=== PATIENT | male | born 1940 | race Caucasian/White ===

== ENCOUNTER 2020-10-24 13:12 | Observation (INO) ==
[2020-10-24 15:28] LABS: ABS Lymphocytes 0.7 10^3/ul (1.0-4.8); ABS Monocytes 0.2 10^3/ul (0-0.8); ABS Neutrophils 11.5 10^3/ul (1.5-7.7); Eosinophil % 0.1 %; Hematocrit 31 % (42-52); Hemoglobin 10.1 g/dL (14.0-18.0); Lymphocyte % 5.8 %; Mean Corpuscular HGB Conc 33 g/dL (31-36); Mean Corpuscular Hemoglobin 30 pg (27-31); Mean Corpuscular Volume 91 fL (80-94); Mean Platelet Volume 7.8 fL (7.4-10.4); Nucleated Red Blood Cells % 0.1; Platelet Count 309 10^3/uL (150-450); Red Blood Count 3.43 10^6 /uL (4.18-5.48); Red Cell Distribution Width 15 % (10-15); White Blood Count 12.4 10^3/uL (3.5-10.8)
[2020-10-24 15:38] LABS: Activated Partial Thrombo Time 24.2 seconds (26.0-38.0); INR 1.28 (0.82-1.09)
[2020-10-24 15:43] LABS: Troponin I 0.04 ng/mL (<0.03)
[2020-10-24 16:03] LABS: ALT 83 U/L (7-52); AST 48 U/L (13-39); Albumin 3.3 g/dL (3.2-5.2); Albumin/Globulin Ratio 1.1 (1-3); Alkaline Phosphatase 77 U/L (34-104); Anion Gap 10 mmol/L (2-11); BUN/Creatinine Ratio 25.6 (8-20); Blood Urea Nitrogen 45 mg/dL (6-24); C Reactive Protein 25.62 mg/L (<8.01); CO2 Carbon Dioxide 27 mmol/L (22-32); Calcium 8.7 mg/dL (8.6-10.3); Chloride 100 mmol/L (101-111); EGFR African American 45.5 (>60); EGFR Non-African American 37.6 (>60); Globulin 2.9 g/dL (2-4); Glucose 115 mg/dL (70-100); Sodium 137 mmol/L (135-145); Total Protein 6.2 g/dL (6.4-8.9)
[2020-10-24] MEDS ORDERED: NS 0.9% 1000 ml BAG 1,000 ML IV ONE ×2 (16:12→17:40)
[2020-10-24] MEDS ORDERED: Iodixanol (CONTRAST) 320 MG/ML 100 ML SDV IV ONE (16:58)
[2020-10-24] MEDS ORDERED: Piperacillin/Tazobac ADVAN 3.375 GM in NS 0.9% 100 ml BAG 100 ML IVPB ONE (17:39)
[2020-10-24] MEDS ORDERED: Piperacillin/Tazobac 3.375 GM BAG ONE (18:13)
[2020-10-24] MEDS ORDERED: Piperacillin/Tazobac ADVAN 3.375 GM in NS 0.9% 100 ml BAG 100 ML IV ONE (19:07)
[2020-10-24] MEDS ORDERED: Albuterol/Ipratropium NEB.SOL (2.5/0.5 MG) 3 ML NEB.SOLN INH PRN (19:26)
[2020-10-24] MEDS ORDERED: Zosyn per Pharmacy NOTE FOLLOW UP SCH (20:00)
[2020-10-24] MEDS: ZOSYN 3.375 GM Q8H per EXTENDED INFUSION IV SCH (21:54)
[2020-10-24] MEDS: Heparin 5000 UNITS/ML 1 mL VIAL SUBCUT SCH (21:54)
[2020-10-24] MEDS: NFT: Albuterol/Ipratropium RESP(NF) MDI (Combivent Respimat) INH SCH (22:31)
[2020-10-24 22:41] LABS: Troponin I 0.04 ng/mL (<0.03)
[2020-10-25] MEDS: ZOSYN 3.375 GM Q8H per EXTENDED INFUSION IV SCH ×2 (05:40→14:11)
[2020-10-25] MEDS: Heparin 5000 UNITS/ML 1 mL VIAL SUBCUT SCH ×2 (05:40→14:08)
[2020-10-25 07:00] LABS: ABS Eosinophils 0.2 10^3/ul (0-0.6); ABS Lymphocytes 1.6 10^3/ul (1.0-4.8); ABS Monocytes 0.6 10^3/ul (0-0.8); ABS Neutrophils 10.2 10^3/ul (1.5-7.7); Eosinophil % 1.2 %; Hematocrit 27 % (42-52); Hemoglobin 9.1 g/dL (14.0-18.0); Lymphocyte % 12.8 %; Mean Corpuscular HGB Conc 33 g/dL (31-36); Mean Corpuscular Hemoglobin 30 pg (27-31); Mean Corpuscular Volume 90 fL (80-94); Mean Platelet Volume 7.7 fL (7.4-10.4); Platelet Count 278 10^3/uL (150-450); Red Blood Count 3.03 10^6 /uL (4.18-5.48); Red Cell Distribution Width 16 % (10-15); White Blood Count 12.6 10^3/uL (3.5-10.8)
[2020-10-25 07:16] LABS: Calcium 8.1 mg/dL (8.6-10.3); EGFR African American 49.4 (>60); EGFR Non-African American 40.8 (>60); Potassium 3.4 mmol/L (3.5-5.0)
[2020-10-25] MEDS: NFT: Albuterol/Ipratropium RESP(NF) MDI (Combivent Respimat) INH SCH ×2 (07:22→11:35)
[2020-10-25] MEDS ORDERED: Aspirin EC 325 mg TAB.EC PO SCH (09:00)
[2020-10-25 15:30] VITALS: BP 139/53
== END 2020-10-25 19:20 | disposition home or self-care (01) ==
LOC: MEDTELE 13:12 → ED 13:12 → MEDTELE 20:12
PROVIDERS: ADMIT Internal Medicine; ATTEND Internal Medicine

== ENCOUNTER 2021-01-07 16:43 | Inpatient (IN) ==
[2021-01-07 17:35] LABS: INR 1.29 (0.86-1.15)
[2021-01-07 17:39] LABS: ABS Lymphocytes 2.3 10^3/ul (1.0-4.8); ABS Monocytes 1.2 10^3/ul (0-0.8); ABS Neutrophils 23.7 10^3/ul (1.5-7.7); Hematocrit 28 % (42-52); Lymphocyte % 8.4 %; Mean Corpuscular HGB Conc 32 g/dL (31-36); Mean Corpuscular Hemoglobin 28 pg (27-31); Mean Corpuscular Volume 86 fL (80-94); Mean Platelet Volume 8.2 fL (7.4-10.4); Platelet Count 452 10^3/uL (150-450); Red Blood Count 3.26 10^6 /uL (4.18-5.48); Red Cell Distribution Width 17 % (10-15); White Blood Count 27.2 10^3/uL (3.5-10.8)
[2021-01-07 17:43] LABS: ALT 12 U/L (7-52); AST 19 U/L (13-39); Albumin 3.2 g/dL (3.2-5.2); Albumin/Globulin Ratio 0.8 (1-3); Alkaline Phosphatase 68 U/L (35-149); Anion Gap 9 mmol/L (2-11); Blood Urea Nitrogen 60 mg/dL (6-24); C Reactive Protein 364.82 mg/L (<8.01); CO2 Carbon Dioxide 27 mmol/L (22-32); Calcium 9.2 mg/dL (8.6-10.3); Chloride 95 mmol/L (101-111); EGFR African American 40.7 (>60); EGFR Non-African American 33.6 (>60); Glucose 143 mg/dL (70-100); Potassium 3.9 mmol/L (3.5-5.0); Sodium 131 mmol/L (135-145); Total Protein 7.2 g/dL (6.4-8.9)
[2021-01-07] MEDS ORDERED: cefTRIAXone 2 GM ADDV.VIAL 2 GM in NS 0.9% 100 ml BAG 100 ML IVPB ONE (17:52)
[2021-01-07] MEDS ORDERED: NS 0.9% 1000 ml BAG 1,000 ML IV ONE ×3 (17:52→19:06)
[2021-01-07 18:01] LABS: Troponin I 0.05 ng/mL (<0.03)
[2021-01-07] MEDS ORDERED: Ondansetron 4 mg VIAL 2 MG/ML 2 ml VIAL IV PRN (21:15)
[2021-01-07] MEDS ORDERED: Magnesium Hydroxide LIQ 30 ML UDC PO PRN (21:15)
[2021-01-07] MEDS ORDERED: Vancomycin 1,500 MG in NS 0.9% 250 ml 250 ML IVPB ONE (22:30)
[2021-01-07] MEDS ORDERED: Norepinephrine 16MCG/ML IVPRE 4,000 MCG/250 ML BAG IV SCH (23:00)
[2021-01-07] MEDS: Heparin 5000 UNITS/ML 1 mL VIAL SUBCUT SCH (23:08)
[2021-01-07] MEDS: Cefepime 2 GM in Dextrose 2 GM/50 ML BAG IV SCH (23:45)
[2021-01-08 00:47] LABS: TSH Ultra Thyroid Stim Horm 2.39 mcIU/mL (0.34-5.60)
[2021-01-08] MEDS: Albuterol/Ipratropium NEB.SOL (2.5/0.5 MG) 3 ML NEB.SOLN INH SCH ×2 (01:55→07:16)
[2021-01-08] MEDS ORDERED: Diltiazem IV push/loading dose 5 MG/ML 5 ML vial (25 mg) IV SLOW PU ONE (03:04)
[2021-01-08] MEDS ORDERED: Vancomycin per Pharmacy 1 EA NOTE FOLLOW UP PRN (04:56)
[2021-01-08] MEDS: Heparin 5000 UNITS/ML 1 mL VIAL SUBCUT SCH ×3 (05:41→20:38)
[2021-01-08 05:58] LABS: ABS Basophils 0.1 10^3/ul (0-0.2); ABS Eosinophils 0.2 10^3/ul (0-0.6); ABS Lymphocytes 0.8 10^3/ul (1.0-4.8); ABS Monocytes 0.9 10^3/ul (0-0.8); ABS Neutrophils 18.6 10^3/ul (1.5-7.7); Eosinophil % 0.7 %; Hematocrit 25 % (42-52); Hemoglobin 8.3 g/dL (14.0-18.0); Mean Corpuscular HGB Conc 33 g/dL (31-36); Mean Corpuscular Hemoglobin 28 pg (27-31); Mean Corpuscular Volume 86 fL (80-94); Mean Platelet Volume 7.8 fL (7.4-10.4); Platelet Count 413 10^3/uL (150-450); Red Blood Count 2.95 10^6 /uL (4.18-5.48); Red Cell Distribution Width 17 % (10-15); White Blood Count 20.6 10^3/uL (3.5-10.8)
[2021-01-08 06:18] LABS: Albumin 2.5 g/dL (3.2-5.2); Albumin/Globulin Ratio 0.8 (1-3); EGFR African American 59.8 (>60); EGFR Non-African American 49.4 (>60); Globulin 3.2 g/dL (2-4); Potassium 3.9 mmol/L (3.5-5.0); Total Bilirubin 0.5 mg/dL (0.2-1.0); Total Protein 5.7 g/dL (6.4-8.9)
[2021-01-08] MEDS: Aspirin EC 325 mg TAB.EC PO SCH (08:11)
[2021-01-08] MEDS: Cefepime 2 GM in Dextrose 2 GM/50 ML BAG IV SCH ×2 (08:12→20:38)
[2021-01-08] MEDS ORDERED: Vancomycin Random Level NOTE FOLLOW UP ONE (11:00)
[2021-01-08] MEDS: PTO:Albuterol/Ipratropium RESP(NF) MDI (Combivent Respimat) INH SCH ×4 (14:20→23:43)
[2021-01-08] MEDS: Vancomycin 1000 MG in NS 0.9% 250 ML IVPB SCH (14:31)
[2021-01-09] MEDS: Vancomycin 1000 MG in NS 0.9% 250 ML IVPB SCH ×2 (02:34→16:46)
[2021-01-09] MEDS: Heparin 5000 UNITS/ML 1 mL VIAL SUBCUT SCH ×3 (06:36→21:23)
[2021-01-09 06:48] LABS: ABS Basophils 0.1 10^3/ul (0-0.2); ABS Eosinophils 0.2 10^3/ul (0-0.6); ABS Lymphocytes 1.7 10^3/ul (1.0-4.8); ABS Monocytes 0.8 10^3/ul (0-0.8); ABS Neutrophils 9.4 10^3/ul (1.5-7.7); Eosinophil % 1.8 %; Hematocrit 22 % (42-52); Hemoglobin 7.4 g/dL (14.0-18.0); Lymphocyte % 14.1 %; Mean Corpuscular HGB Conc 33 g/dL (31-36); Mean Corpuscular Hemoglobin 29 pg (27-31); Mean Corpuscular Volume 86 fL (80-94); Mean Platelet Volume 7.8 fL (7.4-10.4); Platelet Count 327 10^3/uL (150-450); Red Blood Count 2.59 10^6 /uL (4.18-5.48); Red Cell Distribution Width 17 % (10-15); White Blood Count 12.2 10^3/uL (3.5-10.8)
[2021-01-09 07:05] LABS: Calcium 7.8 mg/dL (8.6-10.3); EGFR African American 68.2 (>60); EGFR Non-African American 56.4 (>60); Magnesium 1.9 mg/dL (1.9-2.7); Phosphorus 2.7 mg/dL (2.5-5.0); Potassium 3.4 mmol/L (3.5-5.0)
[2021-01-09] MEDS: PTO:Albuterol/Ipratropium RESP(NF) MDI (Combivent Respimat) INH SCH ×2 (07:52→14:53)
[2021-01-09] MEDS: Cefepime 2 GM in Dextrose 2 GM/50 ML BAG IV SCH ×2 (12:12→21:17)
[2021-01-09] MEDS: Aspirin EC 325 mg TAB.EC PO SCH (12:13)
[2021-01-09] MEDS ORDERED: Perflutren Lipid Microsphere 3 ML VIAL ONE (13:44)
[2021-01-09] MEDS ORDERED: Albuterol/Ipratropium RESP(NF) MDI (Combivent Respimat) INH PRN (14:59)
[2021-01-09] MEDS: Lactated Ringers 1000 ml BAG 1,000 ML IV SCH (16:46)
[2021-01-10] MEDS ORDERED: Magnesium Sulfate IV 1GM/100ML 1 GM/100 ML BAG IV ONE (00:10)
[2021-01-10] MEDS ORDERED: Potassium Chloride LIQUID 20 MEQ/15 ML LIQUID PO ONE (00:11)
[2021-01-10] MEDS: Vancomycin 1000 MG in NS 0.9% 250 ML IVPB SCH ×2 (02:17→14:00)
[2021-01-10] MEDS: Heparin 5000 UNITS/ML 1 mL VIAL SUBCUT SCH ×3 (05:22→20:06)
[2021-01-10 05:26] LABS: ABS Basophils 0.1 10^3/ul (0-0.2); ABS Eosinophils 0.1 10^3/ul (0-0.6); ABS Lymphocytes 1.5 10^3/ul (1.0-4.8); ABS Monocytes 0.8 10^3/ul (0-0.8); ABS Neutrophils 8.5 10^3/ul (1.5-7.7); Eosinophil % 0.8 %; Hematocrit 22 % (42-52); Hemoglobin 7.2 g/dL (14.0-18.0); Lymphocyte % 14.1 %; Mean Corpuscular HGB Conc 33 g/dL (31-36); Mean Corpuscular Hemoglobin 29 pg (27-31); Mean Corpuscular Volume 87 fL (80-94); Mean Platelet Volume 7.8 fL (7.4-10.4); Platelet Count 325 10^3/uL (150-450); Red Blood Count 2.53 10^6 /uL (4.18-5.48); Red Cell Distribution Width 17 % (10-15)
[2021-01-10 05:42] LABS: Calcium 7.8 mg/dL (8.6-10.3); EGFR African American 73.7 (>60); EGFR Non-African American 60.9 (>60); Magnesium 2.1 mg/dL (1.9-2.7); Phosphorus 2.5 mg/dL (2.5-5.0); Potassium 3.7 mmol/L (3.5-5.0)
[2021-01-10] MEDS ORDERED: Albuterol/Ipratropium NEB.SOL (2.5/0.5 MG) 3 ML NEB.SOLN INH PRN (09:19)
[2021-01-10] MEDS: Aspirin EC 325 mg TAB.EC PO SCH (09:21)
[2021-01-10] MEDS: Cefepime 2 GM in Dextrose 2 GM/50 ML BAG IV SCH ×2 (09:22→20:06)
[2021-01-10] MEDS: Lactated Ringers 1000 ml BAG 1,000 ML IV SCH (12:44)
[2021-01-10] MEDS ORDERED: Vancomycin Trough Check NOTE FOLLOW UP ONE (13:30)
[2021-01-10 13:32] LABS: EGFR African American 78.3 (>60); EGFR Non-African American 64.7 (>60); Vancomycin Trough 16.6 mcg/mL
[2021-01-11] MEDS: Vancomycin 1000 MG in NS 0.9% 250 ML IVPB SCH (01:28)
[2021-01-11] MEDS: Heparin 5000 UNITS/ML 1 mL VIAL SUBCUT SCH ×3 (05:19→20:17)
[2021-01-11 05:44] LABS: ABS Eosinophils 0.2 10^3/ul (0-0.6); ABS Lymphocytes 1.9 10^3/ul (1.0-4.8); ABS Monocytes 0.8 10^3/ul (0-0.8); ABS Neutrophils 8.4 10^3/ul (1.5-7.7); Eosinophil % 1.5 %; Hematocrit 22 % (42-52); Hemoglobin 7.1 g/dL (14.0-18.0); Lymphocyte % 16.4 %; Mean Corpuscular HGB Conc 32 g/dL (31-36); Mean Corpuscular Hemoglobin 28 pg (27-31); Mean Corpuscular Volume 85 fL (80-94); Platelet Count 337 10^3/uL (150-450); Red Blood Count 2.56 10^6 /uL (4.18-5.48); Red Cell Distribution Width 17 % (10-15); White Blood Count 11.3 10^3/uL (3.5-10.8)
[2021-01-11 06:03] LABS: Calcium 7.8 mg/dL (8.6-10.3); EGFR African American 93.9 (>60); EGFR Non-African American 77.6 (>60); Magnesium 1.9 mg/dL (1.9-2.7); Phosphorus 2.2 mg/dL (2.5-5.0); Potassium 3.6 mmol/L (3.5-5.0)
[2021-01-11] MEDS: Aspirin EC 325 mg TAB.EC PO SCH (09:08)
[2021-01-11] MEDS: Cefepime 2 GM in Dextrose 2 GM/50 ML BAG IV SCH (09:11)
[2021-01-11] MEDS ORDERED: Magnesium Hydroxide LIQ 30 ML UDC PO SCH (10:00)
[2021-01-11] MEDS: PTO:Albuterol/Ipratropium RESP(NF) MDI (Combivent Respimat) INH SCH ×3 (11:43→23:18)
[2021-01-11 14:01] LABS: Total Iron Binding Capacity 140 mcg/dL (250-450); Transferrin 100 mg/dL (203-362)
[2021-01-11 14:18] LABS: Ferritin 751.5 ng/mL (24-336)
[2021-01-11 14:20] LABS: % Iron Saturation 14 % (15-55); Iron < 20 ug/dL (50-212); Unsaturated Iron Binding < 125 ug/dL
[2021-01-11] MEDS ORDERED: diPHENhydraMINE 25 mg TAB PO ONE (16:39)
[2021-01-12] MEDS: Heparin 5000 UNITS/ML 1 mL VIAL SUBCUT SCH ×3 (06:29→21:21)
[2021-01-12 07:12] LABS: ABS Basophils 0.1 10^3/ul (0-0.2); ABS Eosinophils 0.2 10^3/ul (0-0.6); ABS Lymphocytes 1.8 10^3/ul (1.0-4.8); ABS Monocytes 0.9 10^3/ul (0-0.8); ABS Neutrophils 9.6 10^3/ul (1.5-7.7); Eosinophil % 1.4 %; Hematocrit 22 % (42-52); Hemoglobin 7.2 g/dL (14.0-18.0); Lymphocyte % 14.3 %; Mean Corpuscular HGB Conc 34 g/dL (31-36); Mean Corpuscular Hemoglobin 29 pg (27-31); Mean Corpuscular Volume 85 fL (80-94); Mean Platelet Volume 8.1 fL (7.4-10.4); Platelet Count 380 10^3/uL (150-450); Red Blood Count 2.54 10^6 /uL (4.18-5.48); Red Cell Distribution Width 17 % (10-15); White Blood Count 12.5 10^3/uL (3.5-10.8)
[2021-01-12] MEDS: Aspirin EC 325 mg TAB.EC PO SCH (10:26)
[2021-01-12] MEDS: PTO:Albuterol/Ipratropium RESP(NF) MDI (Combivent Respimat) INH SCH ×4 (10:31→21:22)
[2021-01-12] MEDS ORDERED: Vancomycin Trough Check NOTE FOLLOW UP ONE ×2 (13:30)
[2021-01-13] MEDS: PTO:Albuterol/Ipratropium RESP(NF) MDI (Combivent Respimat) INH SCH ×4 (04:06→22:54)
[2021-01-13 05:36] LABS: ABS Basophils 0.1 10^3/ul (0-0.2); ABS Eosinophils 0.2 10^3/ul (0-0.6); ABS Lymphocytes 1.7 10^3/ul (1.0-4.8); ABS Monocytes 0.8 10^3/ul (0-0.8); ABS Neutrophils 8.7 10^3/ul (1.5-7.7); Eosinophil % 1.5 %; Hematocrit 25 % (42-52); Hemoglobin 7.8 g/dL (14.0-18.0); Lymphocyte % 15.2 %; Mean Corpuscular HGB Conc 32 g/dL (31-36); Mean Corpuscular Hemoglobin 27 pg (27-31); Mean Corpuscular Volume 86 fL (80-94); Mean Platelet Volume 7.8 fL (7.4-10.4); Platelet Count 410 10^3/uL (150-450); Red Blood Count 2.86 10^6 /uL (4.18-5.48); Red Cell Distribution Width 17 % (10-15); White Blood Count 11.5 10^3/uL (3.5-10.8)
[2021-01-13 05:49] LABS: Phosphorus 2.3 mg/dL (2.5-5.0)
[2021-01-13] MEDS: Heparin 5000 UNITS/ML 1 mL VIAL SUBCUT SCH ×3 (05:59→22:50)
[2021-01-13] MEDS: Magnesium Hydroxide LIQ 30 ML UDC PO SCH ×2 (08:50→22:50)
[2021-01-13] MEDS: Aspirin EC 325 mg TAB.EC PO SCH (08:50)
[2021-01-13 15:48] LABS: HCG Pregnancy 0.77 mIU/mL
[2021-01-14] MEDS: PTO:Albuterol/Ipratropium RESP(NF) MDI (Combivent Respimat) INH SCH ×3 (06:01→19:42)
[2021-01-14] MEDS: Heparin 5000 UNITS/ML 1 mL VIAL SUBCUT SCH (06:15)
[2021-01-14 06:55] LABS: Calcium 8.2 mg/dL (8.6-10.3); EGFR African American 81.8 (>60); EGFR Non-African American 67.6 (>60); Potassium 4.6 mmol/L (3.5-5.0)
[2021-01-14] MEDS: Magnesium Hydroxide LIQ 30 ML UDC PO SCH (07:34)
[2021-01-14] MEDS: Aspirin EC 325 mg TAB.EC PO SCH (07:34)
[2021-01-14 07:42] VITALS: BP 131/56
== END 2021-01-14 16:15 | disposition home or self-care (01) | DRG 871 ==
LOC: ED 16:43 → ICU 22:51 → MED 01-08 17:22
PROVIDERS: ADMIT Hospitalist; ATTEND Internal Medicine

== ENCOUNTER 2022-08-06 05:51 | Inpatient (IN) ==
[2022-08-06] MEDS ORDERED: methylPREDNISolone SOD SUCC 125 mg 2 ML VIAL IV ONE (06:12)
[2022-08-06] MEDS ORDERED: Albuterol/Ipratropium NEB.SOL (2.5/0.5 MG) 3 ML NEB.SOLN INH ONE (06:12)
[2022-08-06 06:21] LABS: ABS Basophils 0.1 10^3/ul (0-0.2); ABS Lymphocytes 3.1 10^3/ul (1.0-4.8); ABS Monocytes 0.6 10^3/ul (0-0.8); ABS Neutrophils 9.2 10^3/ul (1.5-7.7); Hematocrit 35 % (42-52); Hemoglobin 11.3 g/dL (14.0-18.0); Lymphocyte % 22.4 %; Mean Corpuscular HGB Conc 32 g/dL (31-36); Mean Corpuscular Hemoglobin 29 pg (27-31); Mean Corpuscular Volume 91 fL (80-94); Mean Platelet Volume 7.8 fL (7.4-10.4); Platelet Count 295 10^3/uL (150-450); Red Blood Count 3.85 10^6 /uL (4.18-5.48); Red Cell Distribution Width 15 % (10-15)
[2022-08-06 06:27] LABS: INR 1.14 (0.88-1.18)
[2022-08-06 06:45] LABS: PCO2 Arterial 34 mmHg (35-45); PO2 Arterial 162 mmHg (80-100)
[2022-08-06 07:01] LABS: Albumin 3.9 g/dL (3.2-5.2); Albumin/Globulin Ratio 1.4 (1-3); C Reactive Protein 31.53 mg/L (<8.01); Creatinine, Serum 1.63 mg/dL (0.67-1.17); Globulin 2.8 g/dL (2-4); Potassium 4.6 mmol/L (3.5-5.0); Total Bilirubin 0.6 mg/dL (0.2-1.0); Total Protein 6.7 g/dL (6.4-8.9); eGFR CKD-EPI 42.3 (>60)
[2022-08-06] MEDS ORDERED: Lactated Ringers 1000 ml BAG 1,000 ML IV ONE (07:08)
[2022-08-06] MEDS ORDERED: fentaNYL 100 mcg/2 ml 50 MCG/ML VIAL IV SLOW PU ONE (07:30)
[2022-08-06] MEDS ORDERED: Lidocaine 1% VIAL 10 MG/ML VIAL 30 ML ONE (07:40)
[2022-08-06 08:15] LABS: High Sensitivity Troponin 1 Hr 18 pg/mL (<20)
[2022-08-06] MEDS ORDERED: Iodixanol (CONTRAST) 320 MG/ML 100 ML SDV IV ONE (08:51)
[2022-08-06] MEDS ORDERED: Albuterol HFA INHALER 8 gm MDI INH PRN (11:13)
[2022-08-06] MEDS: Enoxaparin 40 MG/0.4 ML SYR SUBCUT SCH (13:03)
[2022-08-06] MEDS: cefTRIAXone 1 gm/50 mL D5W 1 GM/50 ML BAG IV SCH (20:03)
[2022-08-06] MEDS: Azithromycin 500 mg/250 ml NS 500 MG/250 ML BAG IVPB SCH (20:51)
[2022-08-07] MEDS: Albuterol/Ipratropium RESP(NF) MDI (Combivent Respimat) INH SCH ×3 (00:09→09:40)
[2022-08-07 05:59] LABS: ABS Eosinophils 0.1 10^3/ul (0-0.6); ABS Lymphocytes 2.9 10^3/ul (1.0-4.8); ABS Monocytes 0.7 10^3/ul (0-0.8); ABS Neutrophils 6.2 10^3/ul (1.5-7.7); Eosinophil % 0.6 %; Hematocrit 29 % (42-52); Hemoglobin 9.5 g/dL (14.0-18.0); Mean Corpuscular HGB Conc 33 g/dL (31-36); Mean Corpuscular Hemoglobin 29 pg (27-31); Mean Corpuscular Volume 89 fL (80-94); Mean Platelet Volume 8.1 fL (7.4-10.4); Platelet Count 250 10^3/uL (150-450); Red Blood Count 3.22 10^6 /uL (4.18-5.48); Red Cell Distribution Width 15 % (10-15); White Blood Count 9.8 10^3/uL (3.5-10.8)
[2022-08-07 06:15] LABS: C Reactive Protein 22.83 mg/L (<8.01); Calcium 8.6 mg/dL (8.6-10.3); Creatinine, Serum 1.33 mg/dL (0.67-1.17); Potassium 4.4 mmol/L (3.5-5.0)
[2022-08-07] MEDS: Enoxaparin 40 MG/0.4 ML SYR SUBCUT SCH (09:24)
[2022-08-07 10:47] LABS: Urine Appearance Clear; Urine Bilirubin Negative (Negative); Urine Blood Negative (Negative); Urine Color Yellow; Urine Glucose Negative (Negative); Urine Ketones Negative (Negative); Urine Nitrite Negative (Negative); Urine Protein Negative (Negative); Urine Specific Gravity 1.014 (1.002-1.030); Urine Urobilinogen Negative (Negative)
[2022-08-07] MEDS: Albuterol/Ipratropium NEB.SOL (2.5/0.5 MG) 3 ML NEB.SOLN INH SCH ×3 (11:01→18:51)
[2022-08-07] MEDS: cefTRIAXone 1 gm/50 mL D5W 1 GM/50 ML BAG IV SCH (19:43)
[2022-08-07] MEDS: Azithromycin 500 mg/250 ml NS 500 MG/250 ML BAG IVPB SCH (20:24)
[2022-08-08 06:08] LABS: Hematocrit 28 % (42-52); Hemoglobin 9.4 g/dL (14.0-18.0); Mean Corpuscular HGB Conc 34 g/dL (31-36); Mean Corpuscular Hemoglobin 30 pg (27-31); Mean Corpuscular Volume 90 fL (80-94); Mean Platelet Volume 7.7 fL (7.4-10.4); Platelet Count 222 10^3/uL (150-450); Red Blood Count 3.13 10^6 /uL (4.18-5.48); Red Cell Distribution Width 15 % (10-15); White Blood Count 6.4 10^3/uL (3.5-10.8)
[2022-08-08 06:46] LABS: Calcium 8.5 mg/dL (8.6-10.3); Creatinine, Serum 1.36 mg/dL (0.67-1.17); Potassium 4.8 mmol/L (3.5-5.0); eGFR CKD-EPI 52.6 (>60)
[2022-08-08] MEDS: Albuterol/Ipratropium NEB.SOL (2.5/0.5 MG) 3 ML NEB.SOLN INH SCH ×4 (07:45→19:00)
[2022-08-08] MEDS: Enoxaparin 40 MG/0.4 ML SYR SUBCUT SCH (10:41)
[2022-08-08] MEDS: cefTRIAXone 1 gm/50 mL D5W 1 GM/50 ML BAG IV SCH (19:39)
[2022-08-08] MEDS: Azithromycin 500 mg/250 ml NS 500 MG/250 ML BAG IVPB SCH (20:27)
[2022-08-09] MEDS ORDERED: Albuterol/Ipratropium NEB.SOL (2.5/0.5 MG) 3 ML NEB.SOLN INH PRN (06:29)
[2022-08-09] MEDS: Albuterol HFA INHALER 8 gm MDI INH SCH ×4 (07:31→19:15)
[2022-08-09] MEDS: Enoxaparin 40 MG/0.4 ML SYR SUBCUT SCH (08:53)
[2022-08-09 12:23] LABS: Ferritin 129.5 ng/mL (24-336)
[2022-08-09] MEDS: cefTRIAXone 1 gm/50 mL D5W 1 GM/50 ML BAG IV SCH (20:00)
[2022-08-10] MEDS: Albuterol HFA INHALER 8 gm MDI INH SCH ×4 (07:15→20:10)
[2022-08-10] MEDS: Enoxaparin 40 MG/0.4 ML SYR SUBCUT SCH (09:56)
[2022-08-10] MEDS: cefTRIAXone 1 gm/50 mL D5W 1 GM/50 ML BAG IV SCH (19:13)
[2022-08-10 22:36] VITALS: BP 133/72
== END 2022-08-10 22:55 | disposition short-term general hospital (02) | DRG 199 ==
LOC: EDHOLD 05:51 → ED 05:51 → SUATTDRO 09:49 → EDHOLD 11:17 → MED 11:35 → SUATTDRO 08-07 08:00
PROVIDERS: ADMIT Internal Medicine; ATTEND Student in an Organized Health Care Education/Training Program

== ENCOUNTER 2023-09-20 15:35 | Inpatient (IN) ==
[2023-09-20 16:33] LABS: PCO2 Arterial 30 mmHg (35-45); PO2 Arterial 81 mmHg (80-100)
[2023-09-20 16:56] LABS: ABS Basophils 0.2 10^3/uL (0.0-0.1); ABS Lymphocytes 2.1 10^3/uL (1.0-4.8); ABS Monocytes 0.5 10^3/uL (0.0-1.1); ABS Neutrophils 11.4 10^3/uL (1.5-7.6); Eosinophil % 0.2 %; Hematocrit 30.4 % (38-53); Hemoglobin 9.9 g/dL (13.2-16.3); Lymphocyte % 14.9 %; Mean Corpuscular Hemoglobin 29.6 pg (27-33); Mean Corpuscular Hgb Conc 32.6 g/dL (31-36); Mean Corpuscular Volume 90.7 fL (80-97); Mean Platelet Volume 7.9 fL (7.5-11.2); Platelet Count 387 10^3/uL (150-450); Red Blood Count 3.35 10^6/uL (4.06-5.63); Red Cell Distribution Width 14.1 % (12-17); White Blood Count 14.2 10^3/uL (3.6-10.2)
[2023-09-20 17:34] LABS: Albumin 3.3 g/dL (3.2-5.2); Albumin/Globulin Ratio 0.9 (1-3); C Reactive Protein 92.27 mg/L (<8.01); Calcium 8.6 mg/dL (8.6-10.3); Creatinine, Serum 2.09 mg/dL (0.67-1.17); Globulin 3.8 g/dL (2-4); Potassium 5.2 mmol/L (3.5-5.0); Total Bilirubin 0.6 mg/dL (0.2-1.0); Total Protein 7.1 g/dL (6.4-8.9); eGFR CKD-EPI 31.2 (>60)
[2023-09-20] MEDS ORDERED: Vancomycin 1,000 MG BAG/ADDV ONE (22:12)
[2023-09-20] MEDS: Piperacillin/Tazobac 3.375 BAG 3.375 GM/100 ML BAG IV ONE (22:25)
[2023-09-20] MEDS: NS 0.9% 1000 ml BAG 1,000 ML IV ONE (22:25)
[2023-09-20] MEDS: Vancomycin 1,000 MG in NS 0.9% 250 ml 250 ML IVPB ONE (23:07)
[2023-09-20] MEDS ORDERED: Zosyn per Pharmacy NOTE FOLLOW UP SCH (23:45)
[2023-09-21] MEDS: Heparin 5000 UNITS/ML 1 mL VIAL SUBCUT SCH (00:59)
[2023-09-21] MEDS: Albuterol/Ipratropium NEB.SOL (2.5/0.5 MG) 3 ML NEB.SOLN INH ONE (01:29)
[2023-09-21] MEDS: NS 0.9% 1000 ml BAG 1,000 ML IV SCH ×2 (01:55→11:15)
[2023-09-21 02:31] LABS: Activated Partial Thrombo Time 34.2 seconds (26.0-38.0); INR 1.2 (0.83-1.13)
[2023-09-21] MEDS ORDERED: ZOSYN 3.375 GM Q8H per EXTENDED INFUSION IV SCH (03:00)
[2023-09-21] MEDS: ZOSYN 3.375 GM Q8H per EXTENDED INFUSION IV SCH (04:04)
[2023-09-21 06:23] LABS: ABS Lymphocytes 3.2 10^3/uL (1.0-4.8); ABS Monocytes 0.4 10^3/uL (0.0-1.1); ABS Neutrophils 4.5 10^3/uL (1.5-7.6); Eosinophil % 0.3 %; Hematocrit 23.2 % (38-53); Hemoglobin 7.7 g/dL (13.2-16.3); Lymphocyte % 39.5 %; Mean Corpuscular Hemoglobin 30.1 pg (27-33); Mean Corpuscular Hgb Conc 33.1 g/dL (31-36); Mean Corpuscular Volume 90.9 fL (80-97); Mean Platelet Volume 7.9 fL (7.5-11.2); Platelet Count 242 10^3/uL (150-450); Red Blood Count 2.55 10^6/uL (4.06-5.63); Red Cell Distribution Width 13.8 % (12-17); White Blood Count 8.1 10^3/uL (3.6-10.2)
[2023-09-21 06:38] LABS: ALT 11 U/L (7-52); AST 10 U/L (13-39); Albumin 2.5 g/dL (3.2-5.2); Albumin/Globulin Ratio 0.8 (1-3); Alkaline Phosphatase 50 U/L (35-149); Anion Gap 8 mmol/L (2-16); Blood Urea Nitrogen 43 mg/dL (6-24); CO2 Carbon Dioxide 25 mmol/L (22-32); Calcium 7.3 mg/dL (8.6-10.3); Chloride 105 mmol/L (101-111); Creatinine, Serum 1.82 mg/dL (0.67-1.17); Glucose 99 mg/dL (70-100); Potassium 4.6 mmol/L (3.5-5.0); Sodium 138 mmol/L (135-145); Total Bilirubin 0.5 mg/dL (0.2-1.0); Total Protein 5.5 g/dL (6.4-8.9); eGFR CKD-EPI 36.9 (>60)
[2023-09-21] MEDS: Albuterol/Ipratropium NEB.SOL (2.5/0.5 MG) 3 ML NEB.SOLN INH SCH ×2 (08:23→20:00)
[2023-09-21] MEDS ORDERED: Albuterol/Ipratropium NEB.SOL (2.5/0.5 MG) 3 ML NEB.SOLN INH PRN (08:27)
[2023-09-21] MEDS ORDERED: Vancomycin 1,000 MG in NS 0.9% 250 ml 250 ML IVPB ONE (09:36)
[2023-09-21] MEDS ORDERED: Vancomycin per Pharmacy 1 EA NOTE FOLLOW UP SCH (10:00)
[2023-09-21 10:32] LABS: % Iron Saturation 11 % (15-55); .Transferrin 124 mg/dL (203-362); Iron < 20 ug/dL (50-212); Total Iron Binding Capacity 174 mcg/dL (250-450); Unsaturated Iron Binding 154 ug/dL
[2023-09-21 10:52] LABS: Ferritin 285.3 ng/mL (24-336)
[2023-09-21] MEDS ORDERED: Albuterol/Ipratropium NEB.SOL (2.5/0.5 MG) 3 ML NEB.SOLN INH SCH (11:00)
[2023-09-21] MEDS ORDERED: Albuterol HFA INHALER 8 gm MDI INH SCH (11:00)
[2023-09-21] MEDS ORDERED: Ipratropium HFA INHALER(NF) (ALTERNATIVE = NEBS) INH SCH (11:00)
[2023-09-21] MEDS: Lactated Ringers 1000 ml BAG 1,000 ML IV SCH (19:33)
[2023-09-21] MEDS: Vancomycin 750 MG in NS 0.9% 250 ML IVPB SCH (21:09)
[2023-09-21] MEDS: IPRATROPIUM RESP MDI INH SCH (22:57)
[2023-09-21] MEDS: ALBUTEROL INH SCH (22:57)
[2023-09-22 06:27] LABS: Calcium 7.5 mg/dL (8.6-10.3); Creatinine, Serum 1.68 mg/dL (0.67-1.17); Magnesium 1.9 mg/dL (1.9-2.7); Potassium 4.7 mmol/L (3.5-5.0); eGFR CKD-EPI 40.6 (>60)
[2023-09-22 07:02] LABS: ABS Eosinophils 0.2 10^3/uL (0.0-0.5); ABS Lymphocytes 2.3 10^3/uL (1.0-4.8); ABS Monocytes 0.4 10^3/uL (0.0-1.1); ABS Neutrophils 5.1 10^3/uL (1.5-7.6); ABS Nucleated RBC 0.01 10^3/ul; Eosinophil % 2.1 %; Hemoglobin 8.2 g/dL (13.2-16.3); Lymphocyte % 29.2 %; Mean Corpuscular Hemoglobin 30.1 pg (27-33); Nucleated Red Blood Cells % 0.1 %/100WBC (0.0-0.8); Platelet Count 228 10^3/uL (150-450); Red Blood Count 2.74 10^6/uL (4.06-5.63); Red Cell Distribution Width 13.9 % (12-17)
[2023-09-22] MEDS: PTO:Albuterol/Ipratropium RESP(NF) MDI (Combivent Respimat) INH SCH (09:00)
[2023-09-22] MEDS: ZOSYN 3.375 GM Q8H per EXTENDED INFUSION IV SCH (22:23)
[2023-09-23 06:21] LABS: Calcium 7.5 mg/dL (8.6-10.3); Creatinine, Serum 1.59 mg/dL (0.67-1.17); Magnesium 1.8 mg/dL (1.9-2.7); Potassium 4.7 mmol/L (3.5-5.0); eGFR CKD-EPI 43.3 (>60)
[2023-09-23] MEDS: Magnesium Sulfate 2 gm BAG 2 GM/50 ML BAG IVPB ONE (09:42)
[2023-09-23] MEDS: PTO:Albuterol/Ipratropium RESP(NF) MDI (Combivent Respimat) INH PRN (13:24)
[2023-09-23] MEDS ORDERED: Vancomycin Trough Check NOTE FOLLOW UP ONE (20:30)
[2023-09-24 06:54] LABS: Calcium 7.7 mg/dL (8.6-10.3); Creatinine, Serum 1.67 mg/dL (0.67-1.17); Magnesium 2.2 mg/dL (1.9-2.7); Potassium 4.6 mmol/L (3.5-5.0); eGFR CKD-EPI 40.9 (>60)
[2023-09-24 08:47] LABS: ABS Eosinophils 0.2 10^3/uL (0.0-0.5); ABS Lymphocytes 2.4 10^3/uL (1.0-4.8); ABS Monocytes 0.3 10^3/uL (0.0-1.1); ABS Neutrophils 4.1 10^3/uL (1.5-7.6); ABS Nucleated RBC 0.01 10^3/ul; Eosinophil % 2.6 %; Hematocrit 23.2 % (38-53); Hemoglobin 7.7 g/dL (13.2-16.3); Lymphocyte % 34.6 %; Mean Corpuscular Hemoglobin 29.8 pg (27-33); Mean Corpuscular Hgb Conc 33.2 g/dL (31-36); Mean Corpuscular Volume 89.7 fL (80-97); Mean Platelet Volume 8.1 fL (7.5-11.2); Nucleated Red Blood Cells % 0.1 %/100WBC (0.0-0.8); Platelet Count 218 10^3/uL (150-450); Red Blood Count 2.58 10^6/uL (4.06-5.63); Red Cell Distribution Width 14.1 % (12-17)
[2023-09-24 13:45] VITALS: BP 114/72
== END 2023-09-24 17:30 | disposition home or self-care (01) | DRG 871 ==
LOC: EDHOLD 15:35 → ED 15:35 → SUATTDRO 21:22 → MEDTELE 23:42 → MED 09-22 18:34
PROVIDERS: ADMIT Internal Medicine; ATTEND Student in an Organized Health Care Education/Training Program

== ENCOUNTER 2023-12-12 07:34 | Inpatient (IN) ==
[2023-12-12 08:56] LABS: ABS Basophils 0.1 10^3/uL (0.0-0.1); ABS Lymphocytes 1.8 10^3/uL (1.0-4.8); ABS Monocytes 0.5 10^3/uL (0.0-1.1); ABS Neutrophils 7.8 10^3/uL (1.5-7.6); ABS Nucleated RBC 0.01 10^3/ul; Hematocrit 29.5 % (38-53); Hemoglobin 9.8 g/dL (13.2-16.3); Lymphocyte % 17.4 %; Mean Corpuscular Hgb Conc 33.1 g/dL (31-36); Mean Corpuscular Volume 90.7 fL (80-97); Mean Platelet Volume 7.7 fL (7.5-11.2); Nucleated Red Blood Cells % 0.1 %/100WBC (0.0-0.8); Platelet Count 325 10^3/uL (150-450); Red Blood Count 3.25 10^6/uL (4.06-5.63); Red Cell Distribution Width 14.3 % (12-17); White Blood Count 10.1 10^3/uL (3.6-10.2)
[2023-12-12 09:20] LABS: Albumin 3.5 g/dL (3.2-5.2); Albumin/Globulin Ratio 1.1 (1-3); Calcium 8.9 mg/dL (8.6-10.3); Creatinine, Serum 1.3 mg/dL (0.67-1.17); Globulin 3.3 g/dL (2-4); Potassium 3.9 mmol/L (3.5-5.0); Total Bilirubin 0.6 mg/dL (0.2-1.0); Total Protein 6.8 g/dL (6.4-8.9); eGFR CKD-EPI 55.2 (>60)
[2023-12-12 10:11] LABS: High Sensitivity Troponin 1 Hr 14 pg/mL (<20)
[2023-12-12] MEDS: cefTRIAXone 1 gm/50 mL D5W 1 GM/50 ML BAG IV ONE (11:43)
[2023-12-12] MEDS: Azithromycin 500 mg/250 ml NS 500 MG/250 ML BAG IVPB ONE (12:17)
[2023-12-12] MEDS: Enoxaparin 40 MG/0.4 ML SYR SUBCUT SCH (12:21)
[2023-12-12] MEDS: Cefepime 2 GM in Dextrose 2 GM/50 ML BAG IV SCH (14:03)
[2023-12-12] MEDS: Albuterol/Ipratropium NEB.SOL (2.5/0.5 MG) 3 ML NEB.SOLN INH SCH (14:04)
[2023-12-12] MEDS: PTO: Albuterol/Ipratropium RESP(NF) MDI (Combivent Respimat) INH SCH (22:20)
[2023-12-13] MEDS: Cefepime 2 GM in Dextrose 2 GM/50 ML BAG IV SCH (01:29)
[2023-12-13 06:51] LABS: ABS Lymphocytes 1.7 10^3/uL (1.0-4.8); ABS Monocytes 0.3 10^3/uL (0.0-1.1); ABS Neutrophils 4.3 10^3/uL (1.5-7.6); ABS Nucleated RBC 0.01 10^3/ul; Hematocrit 26.9 % (38-53); Hemoglobin 9.1 g/dL (13.2-16.3); Lymphocyte % 26.7 %; Mean Corpuscular Hemoglobin 30.5 pg (27-33); Mean Corpuscular Hgb Conc 33.7 g/dL (31-36); Mean Corpuscular Volume 90.4 fL (80-97); Mean Platelet Volume 7.7 fL (7.5-11.2); Nucleated Red Blood Cells % 0.2 %/100WBC (0.0-0.8); Platelet Count 234 10^3/uL (150-450); Red Blood Count 2.98 10^6/uL (4.06-5.63); Red Cell Distribution Width 13.9 % (12-17); White Blood Count 6.2 10^3/uL (3.6-10.2)
[2023-12-13 07:05] LABS: Calcium 8.2 mg/dL (8.6-10.3); Creatinine, Serum 1.17 mg/dL (0.67-1.17); Potassium 4.4 mmol/L (3.5-5.0); eGFR CKD-EPI 62.6 (>60)
[2023-12-13] MEDS ORDERED: cefTRIAXone 1 gm/50 mL D5W 1 GM/50 ML BAG IV SCH (11:00)
[2023-12-13] MEDS: Azithromycin 500 mg/250 ml NS 500 MG/250 ML BAG IVPB SCH (12:10)
[2023-12-13] MEDS: Sulfur Hexaflouride MICROSPHR 25 MG VIAL IV ONE (13:39)
[2023-12-14] MEDS: Albuterol/Ipratropium RESP(NF) MDI (Combivent Respimat) INH SCH (12:37)
[2023-12-14] MEDS: PTO: Albuterol/Ipratropium RESP(NF) MDI (Combivent Respimat) INH SCH (13:01)
[2023-12-16 06:10] LABS: ABS Basophils 0.1 10^3/uL (0.0-0.1); ABS Lymphocytes 2.6 10^3/uL (1.0-4.8); ABS Monocytes 0.4 10^3/uL (0.0-1.1); ABS Neutrophils 6.8 10^3/uL (1.5-7.6); Hematocrit 26.2 % (38-53); Hemoglobin 8.9 g/dL (13.2-16.3); Lymphocyte % 26.5 %; Mean Corpuscular Hemoglobin 30.6 pg (27-33); Mean Corpuscular Hgb Conc 34.1 g/dL (31-36); Mean Corpuscular Volume 89.8 fL (80-97); Mean Platelet Volume 7.7 fL (7.5-11.2); Platelet Count 212 10^3/uL (150-450); Red Blood Count 2.92 10^6/uL (4.06-5.63); Red Cell Distribution Width 13.8 % (12-17); White Blood Count 9.9 10^3/uL (3.6-10.2)
[2023-12-16 07:09] LABS: Calcium 8.1 mg/dL (8.6-10.3); Creatinine, Serum 1.07 mg/dL (0.67-1.17); Potassium 4.4 mmol/L (3.5-5.0); eGFR CKD-EPI 69.7 (>60)
[2023-12-16] MEDS ORDERED: PTO: Albuterol/Ipratropium RESP(NF) MDI (Combivent Respimat) INH PRN (14:05)
[2023-12-17 13:28] VITALS: BP 137/69
== END 2023-12-17 18:20 | disposition home or self-care (01) | DRG 190 ==
LOC: EDHOLD 07:34 → ED 07:34 → MEDTELE 16:12 → SUATTDRO 12-14 16:40
PROVIDERS: ADMIT Internal Medicine; ATTEND Internal Medicine

== ENCOUNTER 2024-05-28 14:36 | Inpatient (IN) ==
[2024-05-28] MEDS: Lactated Ringers 1000 ml BAG IV.FLUID IV ONE (17:17)
[2024-05-28 17:28] LABS: ABS Basophils 0.1 10^3/uL (0.0-0.1); ABS Lymphocytes 1.7 10^3/uL (1.0-4.8); ABS Monocytes 0.5 10^3/uL (0.0-1.1); Eosinophil % 0.1 %; Hematocrit 32.2 % (38-53); Hemoglobin 10.6 g/dL (13.2-16.3); Lymphocyte % 16.3 %; Mean Corpuscular Hemoglobin 29.6 pg (27-33); Mean Corpuscular Hgb Conc 32.9 g/dL (31-36); Mean Corpuscular Volume 90.1 fL (80-97); Mean Platelet Volume 7.8 fL (7.5-11.2); Platelet Count 304 10^3/uL (150-450); Red Blood Count 3.57 10^6/uL (4.06-5.63); Red Cell Distribution Width 14.1 % (12-17); White Blood Count 10.2 10^3/uL (3.6-10.2)
[2024-05-28 18:10] LABS: Albumin 3.1 g/dL (3.2-5.2); C Reactive Protein 138.21 mg/L (<8.01); Calcium 8.5 mg/dL (8.6-10.3); Creatinine, Serum 0.99 mg/dL (0.67-1.17); Globulin 3.2 g/dL (2-4); Potassium 3.9 mmol/L (3.5-5.0); Total Bilirubin 0.9 mg/dL (0.2-1.0); Total Protein 6.3 g/dL (6.4-8.9); eGFR CKD-EPI 76.1 (>60)
[2024-05-28] MEDS: methylPREDNISolone SOD SUCC 125 mg 2 ML VIAL IV ONE (18:38)
[2024-05-28] MEDS: Piperacillin/Tazobac 3.375 BAG 3.375 GM/100 ML BAG IV ONE (18:39)
[2024-05-28] MEDS: Iohexol 350 (CONTRAST) 500 ML MDV IV ONE (20:59)
[2024-05-28 22:58] LABS: Urine Appearance Clear; Urine Bacteria Absent /HPF (Absent); Urine Bilirubin Negative (Negative); Urine Blood Negative (Negative); Urine Color Yellow; Urine Glucose Negative (Negative); Urine Ketones Negative (Negative); Urine Nitrite Negative (Negative); Urine Protein 2+ (>=100 mg/dL) (Negative); Urine Red Blood Cell 1+(3-5/hpf) /HPF (0-Trace); Urine Specific Gravity >1.050 (1.002-1.030); Urine Urobilinogen 1+ (Negative); Urine White Blood Cell Trace(0-5/hpf) /HPF (0-Trace); Urine pH 5.5 (5.0-8.0)
[2024-05-29] MEDS ORDERED: Albuterol/Ipratropium NEB.SOL (2.5/0.5 MG) 3 ML NEB.SOLN INH PRN (01:27)
[2024-05-29] MEDS: cefTRIAXone 1 gm/50 mL D5W 1 GM/50 ML BAG IV SCH (03:25)
[2024-05-29] MEDS: Azithromycin 500 mg/250 ml NS 500 MG/250 ML BAG IVPB SCH (03:54)
[2024-05-29 06:27] LABS: ABS Lymphocytes 0.9 10^3/uL (1.0-4.8); ABS Neutrophils 3.3 10^3/uL (1.5-7.6); Hematocrit 27.8 % (38-53); Hemoglobin 9.3 g/dL (13.2-16.3); Lymphocyte % 20.5 %; Mean Corpuscular Hgb Conc 33.4 g/dL (31-36); Mean Corpuscular Volume 89.9 fL (80-97); Mean Platelet Volume 7.8 fL (7.5-11.2); Nucleated Red Blood Cells % 0.1 %/100WBC (0.0-0.8); Platelet Count 259 10^3/uL (150-450); Red Blood Count 3.09 10^6/uL (4.06-5.63); Red Cell Distribution Width 14.4 % (12-17); White Blood Count 4.2 10^3/uL (3.6-10.2)
[2024-05-29 06:53] LABS: Calcium 8.2 mg/dL (8.6-10.3); Creatinine, Serum 1.01 mg/dL (0.67-1.17); Magnesium 1.8 mg/dL (1.9-2.7); Potassium 4.1 mmol/L (3.5-5.0); eGFR CKD-EPI 74.3 (>60)
[2024-05-29] MEDS: Magnesium Sulfate 2 gm BAG 2 GM/50 ML BAG IVPB ONE (07:26)
[2024-05-29] MEDS ORDERED: Enoxaparin 40 MG/0.4 ML SYR SUBCUT SCH (09:00)
[2024-05-29] MEDS: Enoxaparin 60 MG/0.6 ML SYR SUBCUT SCH (10:34)
[2024-05-29] MEDS: FLUTICAS/UMECLI/VILANT 200-62.5-25 MDI (NF) INH SCH (14:27)
[2024-05-30] MEDS: Azithromycin 500 mg/250 ml NS 500 MG/250 ML BAG IVPB SCH (05:29)
[2024-05-30 06:35] LABS: ABS Lymphocytes 0.9 10^3/uL (1.0-4.8); ABS Monocytes 0.3 10^3/uL (0.0-1.1); ABS Neutrophils 6.4 10^3/uL (1.5-7.6); ABS Nucleated RBC 0.01 10^3/ul; Hematocrit 25.9 % (38-53); Hemoglobin 8.6 g/dL (13.2-16.3); Lymphocyte % 12.3 %; Mean Corpuscular Hemoglobin 30.2 pg (27-33); Mean Corpuscular Hgb Conc 33.4 g/dL (31-36); Mean Corpuscular Volume 90.3 fL (80-97); Mean Platelet Volume 8.3 fL (7.5-11.2); Nucleated Red Blood Cells % 0.1 %/100WBC (0.0-0.8); Platelet Count 260 10^3/uL (150-450); Red Blood Count 2.86 10^6/uL (4.06-5.63); Red Cell Distribution Width 14.6 % (12-17); White Blood Count 7.7 10^3/uL (3.6-10.2)
[2024-05-30] MEDS: cefTRIAXone 1 gm/50 mL D5W 1 GM/50 ML BAG IV SCH (06:44)
[2024-05-30 06:53] LABS: Calcium 8.1 mg/dL (8.6-10.3); Creatinine, Serum 1.12 mg/dL (0.67-1.17); Magnesium 2.4 mg/dL (1.9-2.7); Potassium 4.2 mmol/L (3.5-5.0); eGFR CKD-EPI 65.6 (>60)
[2024-05-30] MEDS: Sulfamethox/Trimethoprim DS TAB 800/160 mg PO SCH ×2 (20:04→20:18)
[2024-05-30] MEDS ORDERED: Sulfamethox/Trimethoprim DS TAB 800/160 mg PO SCH ×2 (21:00)
[2024-05-31 05:50] LABS: ABS Lymphocytes 1.4 10^3/uL (1.0-4.8); ABS Monocytes 0.6 10^3/uL (0.0-1.1); ABS Neutrophils 7.1 10^3/uL (1.5-7.6); Hematocrit 26.7 % (38-53); Hemoglobin 8.9 g/dL (13.2-16.3); Lymphocyte % 15.7 %; Mean Corpuscular Hemoglobin 29.8 pg (27-33); Mean Corpuscular Hgb Conc 33.2 g/dL (31-36); Mean Corpuscular Volume 89.8 fL (80-97); Mean Platelet Volume 8.3 fL (7.5-11.2); Platelet Count 260 10^3/uL (150-450); Red Blood Count 2.97 10^6/uL (4.06-5.63); Red Cell Distribution Width 14.4 % (12-17); White Blood Count 9.1 10^3/uL (3.6-10.2)
[2024-05-31 06:08] LABS: Calcium 8.2 mg/dL (8.6-10.3); Creatinine, Serum 1.01 mg/dL (0.67-1.17); Magnesium 2.2 mg/dL (1.9-2.7); Potassium 4.3 mmol/L (3.5-5.0); eGFR CKD-EPI 74.3 (>60)
[2024-06-01 06:31] LABS: ABS Monocytes 0.6 10^3/uL (0.0-1.1); ABS Neutrophils 6.1 10^3/uL (1.5-7.6); ABS Nucleated RBC 0.01 10^3/ul; Hematocrit 29.2 % (38-53); Hemoglobin 9.3 g/dL (13.2-16.3); Lymphocyte % 22.8 %; Mean Corpuscular Hemoglobin 29.8 pg (27-33); Mean Corpuscular Volume 92.9 fL (80-97); Nucleated Red Blood Cells % 0.1 %/100WBC (0.0-0.8); Platelet Count 204 10^3/uL (150-450); Red Blood Count 3.14 10^6/uL (4.06-5.63); Red Cell Distribution Width 14.5 % (12-17); White Blood Count 8.7 10^3/uL (3.6-10.2)
[2024-06-01 06:46] LABS: Calcium 8.1 mg/dL (8.6-10.3); Creatinine, Serum 1.09 mg/dL (0.67-1.17); Magnesium 2.1 mg/dL (1.9-2.7); Potassium 5.1 mmol/L (3.5-5.0); eGFR CKD-EPI 67.8 (>60)
[2024-06-02 06:01] LABS: ABS Lymphocytes 2.2 10^3/uL (1.0-4.8); ABS Monocytes 0.5 10^3/uL (0.0-1.1); ABS Neutrophils 5.9 10^3/uL (1.5-7.6); ABS Nucleated RBC 0.01 10^3/ul; Hematocrit 26.2 % (38-53); Hemoglobin 8.7 g/dL (13.2-16.3); Lymphocyte % 25.7 %; Mean Corpuscular Hemoglobin 29.7 pg (27-33); Mean Corpuscular Hgb Conc 33.3 g/dL (31-36); Mean Corpuscular Volume 89.2 fL (80-97); Mean Platelet Volume 8.3 fL (7.5-11.2); Nucleated Red Blood Cells % 0.1 %/100WBC (0.0-0.8); Platelet Count 235 10^3/uL (150-450); Red Blood Count 2.94 10^6/uL (4.06-5.63); Red Cell Distribution Width 14.2 % (12-17); White Blood Count 8.6 10^3/uL (3.6-10.2)
[2024-06-02 06:18] LABS: Creatinine, Serum 1.13 mg/dL (0.67-1.17); Magnesium 2.2 mg/dL (1.9-2.7); Potassium 5.3 mmol/L (3.5-5.0); eGFR CKD-EPI 64.9 (>60)
[2024-06-02] MEDS: SODIUM ZIRCONIUM CYCLOSILICATE 5 GM PACKET PO ONE (11:40)
[2024-06-02 12:07] LABS: Rapid COVID-19 Molecular Undetected (Undetected)
[2024-06-03 06:02] LABS: ABS Lymphocytes 2.2 10^3/uL (1.0-4.8); ABS Monocytes 0.3 10^3/uL (0.0-1.1); ABS Neutrophils 5.8 10^3/uL (1.5-7.6); Hematocrit 26.5 % (38-53); Hemoglobin 8.9 g/dL (13.2-16.3); Lymphocyte % 26.3 %; Mean Corpuscular Hemoglobin 29.8 pg (27-33); Mean Corpuscular Hgb Conc 33.5 g/dL (31-36); Mean Platelet Volume 8.3 fL (7.5-11.2); Platelet Count 253 10^3/uL (150-450); Red Blood Count 2.98 10^6/uL (4.06-5.63); Red Cell Distribution Width 14.1 % (12-17); White Blood Count 8.3 10^3/uL (3.6-10.2)
[2024-06-03 06:19] LABS: Calcium 8.1 mg/dL (8.6-10.3); Creatinine, Serum 1.31 mg/dL (0.67-1.17); Magnesium 2.1 mg/dL (1.9-2.7); Potassium 5.5 mmol/L (3.5-5.0); eGFR CKD-EPI 54.3 (>60)
[2024-06-03] MEDS: SODIUM ZIRCONIUM CYCLOSILICATE 10 GM PACKET PO ONE (08:17)
[2024-06-03] MEDS: NS 0.9% 500 ml BAG 500 ML IV ONE (08:29)
[2024-06-03] MEDS ORDERED: NS 0.9% 500 ml BAG 500 ML IV SCH (09:00)
[2024-06-03 09:39] VITALS: BP 126/62
[2024-06-03 10:42] LABS: Creatinine, Serum 1.26 mg/dL (0.67-1.17); Potassium 4.6 mmol/L (3.5-5.0); eGFR CKD-EPI 56.9 (>60)
== END 2024-06-03 13:00 | DRG 175 ==
LOC: ED 14:36 → EDHOLD 14:36 → SUATTDRO 05-29 02:46 → MED 05-29 08:42
PROVIDERS: ADMIT Student in an Organized Health Care Education/Training Program; ATTEND Hospitalist

== ENCOUNTER 2024-06-17 13:55 | Inpatient (IN) ==
[2024-06-17] MEDS: Lactated Ringers SEPSIS* BAG 2,260 ML IV ONE (14:38)
[2024-06-17] MEDS: Cefepime 2 GM in Dextrose 2 GM/50 ML BAG IV ONE (14:43)
[2024-06-17 14:44] LABS: ABS Lymphocytes 0.3 10^3/uL (1.0-4.8); ABS Monocytes 0.2 10^3/uL (0.0-1.1); ABS Neutrophils 6.3 10^3/uL (1.5-7.6); Eosinophil % 0.1 %; Hematocrit 29.6 % (38-53); Hemoglobin 10.1 g/dL (13.2-16.3); Lymphocyte % 4.6 %; Mean Corpuscular Hemoglobin 30.3 pg (27-33); Mean Corpuscular Hgb Conc 34.2 g/dL (31-36); Mean Corpuscular Volume 88.6 fL (80-97); Mean Platelet Volume 7.3 fL (7.5-11.2); Platelet Count 296 10^3/uL (150-450); Red Blood Count 3.34 10^6/uL (4.06-5.63); Red Cell Distribution Width 14.7 % (12-17); White Blood Count 6.9 10^3/uL (3.6-10.2)
[2024-06-17 15:01] LABS: Activated Partial Thrombo Time 30.1 seconds (26.0-38.0); INR 1.69 (0.85-1.14)
[2024-06-17 15:24] LABS: Albumin 3.1 g/dL (3.2-5.2); Albumin/Globulin Ratio 0.8 (1-3); C Reactive Protein 58.68 mg/L (<8.01); Calcium 8.3 mg/dL (8.6-10.3); Creatinine, Serum 1.02 mg/dL (0.67-1.17); Globulin 3.7 g/dL (2-4); Potassium 5.2 mmol/L (3.5-5.0); Total Bilirubin 0.5 mg/dL (0.2-1.0); Total Protein 6.8 g/dL (6.4-8.9); eGFR CKD-EPI 73.4 (>60)
[2024-06-17] MEDS: Azithromycin 500 mg/250 ml NS 500 MG/250 ML BAG IVPB ONE (15:30)
[2024-06-17 16:25] LABS: High Sensitivity Troponin 1 Hr 26 pg/mL (<20)
[2024-06-17] MEDS ORDERED: guaiFENesin 100 mg/5 ml LIQ unit dose cup PO PRN (17:41)
[2024-06-17] MEDS ORDERED: Albuterol/Ipratropium NEB.SOL (2.5/0.5 MG) 3 ML NEB.SOLN INH PRN (18:29)
[2024-06-17 21:07] LABS: Osmolality Serum 280 mOsm/kg (275-295)
[2024-06-17 21:36] LABS: Urine Appearance Clear; Urine Bilirubin Negative (Negative); Urine Blood Negative (Negative); Urine Color Yellow; Urine Glucose Negative (Negative); Urine Ketones Negative (Negative); Urine Nitrite Negative (Negative); Urine Protein Trace (Negative); Urine Specific Gravity 1.021 (1.002-1.030); Urine Urobilinogen Negative (Negative)
[2024-06-17 21:43] LABS: Urine Osmo 472 mOsm/kg (150-1150); Urine Potassium Concentration 59.7 mmol/L
[2024-06-18] MEDS: Cefepime 1 GM in Dextrose 1 GM/50 ML BAG IV SCH (02:42)
[2024-06-18 06:12] LABS: ABS Basophils 0.1 10^3/uL (0.0-0.1); ABS Lymphocytes 2.6 10^3/uL (1.0-4.8); ABS Monocytes 0.4 10^3/uL (0.0-1.1); ABS Neutrophils 7.6 10^3/uL (1.5-7.6); ABS Nucleated RBC 0.01 10^3/ul; Eosinophil % 0.3 %; Hematocrit 22.7 % (38-53); Hemoglobin 7.9 g/dL (13.2-16.3); Mean Corpuscular Hemoglobin 30.6 pg (27-33); Mean Corpuscular Hgb Conc 34.7 g/dL (31-36); Mean Corpuscular Volume 88.2 fL (80-97); Mean Platelet Volume 7.7 fL (7.5-11.2); Nucleated Red Blood Cells % 0.1 %/100WBC (0.0-0.8); Platelet Count 222 10^3/uL (150-450); Red Blood Count 2.58 10^6/uL (4.06-5.63); Red Cell Distribution Width 14.7 % (12-17); White Blood Count 10.7 10^3/uL (3.6-10.2)
[2024-06-18 06:36] LABS: C Reactive Protein 116.98 mg/L (<8.01); Calcium 7.7 mg/dL (8.6-10.3); Creatinine, Serum 0.84 mg/dL (0.67-1.17); Magnesium 1.6 mg/dL (1.9-2.7); Phosphorus 2.7 mg/dL (2.5-5.0); Potassium 4.4 mmol/L (3.5-5.0); eGFR CKD-EPI 87.1 (>60)
[2024-06-18] MEDS: Magnesium Sulfate 2 gm BAG 2 GM/50 ML BAG IVPB ONE (08:55)
[2024-06-18] MEDS: CMC:FLUTICAS/UMECLI/VILANT 200-62.5-25 MDI (NF) INH SCH (09:05)
[2024-06-18] MEDS: Magnesium Sulfate IV 1GM/100ML 1 GM/100 ML BAG IV ONE (10:16)
[2024-06-18] MEDS: Azithromycin 500 mg/250 ml NS 500 MG/250 ML BAG IVPB SCH (16:39)
[2024-06-19 10:20] VITALS: BP 108/55
[2024-06-19 13:34] LABS: Rapid COVID-19 Molecular Undetected (Undetected)
== END 2024-06-19 16:07 | DRG 871 ==
LOC: EDHOLD 13:55 → ED 13:55 → OBSVTOIN 16:17 → SUATTDRO 16:17 → MEDTELE 19:48
PROVIDERS: ADMIT Hospitalist; ATTEND Student in an Organized Health Care Education/Training Program